=== PATIENT | female | born 2005 | race Caucasian/White ===

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

== ENCOUNTER 2024-08-21 16:12 | Outpatient (CLI) | payer BC, SELFPAY ==
[2024-08-21 17:09] LABS: Barbiturates Screen,Urine Negative ng/ml (<200); Benzodiazepines Screen,Urine Negative ng/ml (<200)
[2024-08-21 17:10] LABS: Amphetamine/Metha Screen,Urine Negative ng/ml (<1000)
[2024-08-21 17:11] LABS: Cannabinoid Screen,Urine Negative ng/ml (<50); Methadone Screen,Urine Negative ng/ml (<300)
[2024-08-21 17:12] LABS: Cocaine Screen,Urine Negative ng/ml (<300)
[2024-08-21 17:13] LABS: Opiate Screen,Urine Negative ng/ml (<300); Phencyclidine Screen,Urine Negative ng/ml (<25)
[2024-08-25 15:34] LABS: QuantiFERON-TB Gold Plus Negative (Negative)
== END 2024-08-21 23:59 | disposition home or self-care (01) ==
LOC: LAB 16:14
PROVIDERS: PCP Internal Medicine Adolescent Medicine; Visit Provider Physician Assistant
DX: Z02.83 Encounter for blood-alcohol and blood-drug test (principal); Z11.1 Encounter for screening for respiratory tuberculosis
CPT/HCPCS: 36415; 80307; 86480

== ENCOUNTER 2024-12-02 08:45 | Outpatient (CLI) | payer BC, SELFPAY ==
[2024-12-02 20:02] LABS: Coronavirus 19, PCR Not Detected (NotDetected); Influenza A, PCR Not Detected (NotDetected); Influenza B, PCR Not Detected (NotDetected); Respiratory Syncytial Virus Not Detected (NotDetected)
[2024-12-02 23:17] LABS: Human Rhinovirus Detected (NotDetected)
== END 2024-12-02 23:59 | disposition home or self-care (01) ==
LOC: LAB.DROPOF 12-04 08:46
PROVIDERS: PCP Internal Medicine Adolescent Medicine; Visit Provider Nurse Practitioner
DX: R50.9 Fever, unspecified (principal)
CPT/HCPCS: 87631